=== PATIENT | male | born 1975 | race Caucasian/White ===

== ENCOUNTER 2022-02-10 09:37 | Emergency (ER) | payer OTHER ==
[~2022-02-10] VITALS: Ht 167.6 cm; Wt 90.7 kg
[2022-02-10 09:39] VITALS: BP 184/106
[2022-02-10] MEDS ORDERED: BUPRENORPHINE HCL 2 MG TAB.SUBL SL ONE ×2 (10:00→10:18)
[2022-02-10] MEDS ORDERED: ONDANSETRON 4 MG TAB.RAPDIS ONE ×2 (10:11→10:18)
--- NOTE | 2022-02-10 10:19 | NUR ---
SS consult: SS consult requested for drug abuse. The pt. is a 47-year-old male who was BIBLAPD due to heroine withdrawal per EMR. Upon SS consult, the pt. is alert & oriented x 4 and makes poor eye contact. The pt. is sitting on chair with eyes closed. The pt. appears well-groomed. The pt.'s speech and thought process are WNL. The pt. presents with dysphoric mood & affect. The pt. denies SI/HI and denies hallucinations. SW explored pt.'s psych Hx. Pt. states he has been diagnosed with a mental illness in the past was psychotropic medications to manage psych symptoms (auditory hallucinations). However, per pt. he is not complaint with medication. Pt. denies current hallucinations. SW explored pt.'s living situation. Pt. stated he resides at [[id number] [facility] [address]; [phone]]. SW explored pt.'s support system. SW explored pt.'s drug & ETOH use. pt. stated he uses "everything". Per pt. he last used "pills and heroin". Per pt. he does not know what type of pills they were. 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 SW offered MAT resources and pt. is agreeable: [facility]: [address] [place] [address] Intake hours: 5:45am-9:00am, walk-ins Monday, Monday, [facility]: [id number] [place] [address] Intake hours: 5:45am-12:30pm, Monday and [facility]: [address] [place] [id number] Intake hours: 8:00am-2:00pm, Monday through Monday Patient appears to be at the preparation phase of change with his substance dependence. SHIRLEY spoke with [employer] officers who stated this pt. is in custody and they will be taking him to the [facility] once discharged. Noted. SHIRLEY discussed this case with Dr. Aiken who administered Buprenorphine at 1022 to manage withdrawal symptoms per EMR.
--- NOTE | 2022-02-10 10:28 | NUR ---
Medically cleared for Booking. NO acute changes. NO obvious distress. Discharged to [employer] custody
[2022-02-10] MEDS ORDERED: ONDANSETRON 4 MG TAB.RAPDIS SL ONE (10:30)
== END 2022-02-10 10:28 ==
LOC: ER 09:48
DX: F11.23 Opioid dependence with withdrawal (principal); R11.0 Nausea
CPT/HCPCS: 99283; Q0162